=== PATIENT | female | born 1965 | race Hispanic/Latino ===

== ENCOUNTER 2020-09-05 23:14 | Emergency (ER) | payer OTHER ==
[~2020-09-05] VITALS: Ht 152.4 cm; Wt 59.0 kg
[2020-09-06 00:38] VITALS: BP 104/52
== END 2020-09-06 01:47 | disposition home or self-care (01) ==
LOC: EDH 23:38
DX: G89.18 Other acute postprocedural pain (principal); M54.2 Cervicalgia; E11.9 Type 2 diabetes mellitus without complications; I10 Essential (primary) hypertension; E89.2 Postprocedural hypoparathyroidism
CPT/HCPCS: 99281